=== PATIENT | male | born 1975 | race Caucasian/White ===

== ENCOUNTER 2021-03-14 16:51 | Emergency (ER) | payer OTHER, SELFPAY ==
[2021-03-14 16:58] VITALS: BP 139/75; PULSE 82; RESP 18; TEMP 36.8; O2SAT 99
--- NOTE | 2021-03-14 17:01 | ED.EYEPROB ---
HPI - Eye Problem General Chief complaint: Eye Problems Stated complaint: fb eye Time Seen by Provider: 03/14/21 17:05 Source: patient Mode of arrival: ambulatory Limitations: no limitations History of Present Illness HPI Narrative: 45 year old male presents to express care with complaints of foreign body to his left eye. 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 Patient states that he washed his left eye out using a water bottle but he continues to feel very irritated and photophobic with discomfort to his left eye. Patient denies any sharp pain, or any change in his vision, states some increase in watering from his left eye. Patient states that MD chief complaint: eye pain, eye redness, foreign body and other (photosensitivity) Onset (ago): hour(s) (at 1300 today) Onset description: sudden and gradual Duration: constant Location: left eye Eye Symptoms: redness, foreign body sensation and photophobia Mechanism: other (cutting wood) Related Data Home Medications Medication Instructions Recorded Confirmed fexofenadine [Marie] 180 mg PO DAILY 03/14/21 03/14/21 levothyroxine 03/14/21 03/14/21 Allergies Allergy/AdvReac Type Severity Reaction Status Date / Time No Known Allergies Allergy Unknown Verified 04/27/17 08:35 Review of Systems Review of Systems: Narrative: CONSTITUTIONAL: Denies fever, chills, or sweats. EYES: Denies visual changes,positive redness, some increased watering of left eye , photophobia and feeling of foreign body sensation. ENT: Denies rhinorrhea, congestion, sore throat, or otalgia. CARDIOVASCULAR: Denies chest pain, palpitations, or edema. RESPIRATORY: Denies cough or dyspnea. GASTROINTESTINAL: Denies abdominal pain, nausea, vomiting, or diarrhea. GENITOURINARY: Denies dysuria or hematuria. SKIN: Denies rash or itching. MUSCULOSKELETAL: Denies back pain, joint pain, or myalgia. NEUROLOGIC: Denies headache, numbness, or weakness. PSYCHIATRIC: Denies anxiety or depression. All systems reviewed & are unremarkable except as noted in HPI and below PMFSH Past Medical History Medical History (Updated 03/14/21 @ 17:53 by Caitlyn Shaw NP) Cancer of thyroid radioactive iodine Fracture of right forearm MRSA infection right leg Surgical History Surgical History (Updated 03/14/21 @ 17:54 by Caitlyn Shaw NP) No history of previous surgery Social History Social History (Updated 03/14/21 @ 17:54 by Caitlyn Shaw NP) Smoking status: Never smoker Alcohol intake: current Alcohol use details: rare Substance use: never Living arrangements: with family Gender identity (if verbalized by the patient): Male Comments At time of signature, agree with nursing past medical, surgical, social and family history. There is no relevant family history pertinent to the presenting complaint Exam Narrative: Exam Narrative: GENERAL: Well-appearing, well-nourished, and in no acute distress. HEAD: Normocephalic, atraumatic EYES: PERRLA and EOMI..increased watering and irritation to the left eye with foreign body sensation after cutting wood today. Patient states no changes in vision or any acute sharp pain. some scleral redness with photophobia ENT: Nares clear, no rhinorrhea or epistaxis. Mucous membranes moist. NECK: Supple.no lymphadenopathy CHEST: Clear to auscultation. No respiratory distress.[id number]% on room air HEART: Regular rate and rhythm. No murmur heard. Normal peripheral pulses. ABDOMEN: Soft, nontender, nondistended, normal active bowel sounds. EXTREMITIES: Normal range of motion. No edema. SKIN: Warm, dry, no rash. NEURO: No focal deficits. Alert and oriented x3. Course Vital Signs Vital signs: Vital Signs Temperature 36.8 C 03/14/21 16:58 Pulse Rate 82 03/14/21 16:58 Respiratory Rate 18 03/14/21 16:58 Blood Pressure 139/75 03/14/21 16:58 Pulse Oximetry 99 03/14/21 16:58
== END 2021-03-14 17:34 | disposition home or self-care (01) ==
PROVIDERS: Emergency Provider Registered Nurse; PCP Internal Medicine
DX: T15.12XA Foreign body in conjunctival sac, left eye, initial encounter (principal); X58.XXXA Exposure to other specified factors, initial encounter; Z85.850 Personal history of malignant neoplasm of thyroid; Z86.14 Personal history of Methicillin resistant Staphylococcus aureus infection
CPT/HCPCS: 65205; 99213; A9270; G0463

== ENCOUNTER 2021-05-07 15:03 | Emergency (ER) | payer OTHER, SELFPAY ==
[2021-05-07 15:08] VITALS: BP 139/84; PULSE 84; RESP 20; TEMP 36.8; O2SAT 98
--- NOTE | 2021-05-07 15:27 | ED.GENADULT ---
HPI - General Adult General Chief complaint: Upper Respiratory Infection Stated complaint: fever/cough/sob Source: patient Mode of arrival: ambulatory Limitations: no limitations History of Present Illness HPI narrative: 45 y/o male. PMHx Hypothyroid. Presents to [facility] today with acute complaints of nasal congestion, sore throat, cough, body aches, fever at home, as well as intermittent dyspnea for the past 1 week. He tells me that he had been exposed to his children whom were ill with similar symptoms earlier in the week when picking them up for skilled nursing arrangements. Denies chest pain, palpitations, edema. No GI upset, N/V/D. He reports subtherapeutic relief with OTC remedies. Non-smoker. Has not been Covid 19 vaccinated. Pt is w/o additional acute c/o illness upon PE. Related Data Home Medications Medication Instructions Recorded Confirmed levothyroxine 175 mcg PO DAILY 03/14/21 03/14/21 Allergies Allergy/AdvReac Type Severity Reaction Status Date / Time No Known Allergies Allergy Unknown Verified 05/07/21 15:17 Review of Systems Review of Systems: CONSTITUTIONAL: Positive fever, chills, sweats. EYES: Denies visual changes, redness, discharge. ENT: Positive rhinorrhea, congestion, sore throat. No otalgia. CARDIOVASCULAR: Denies chest pain, palpitations, edema. RESPIRATORY: Positive dyspnea, cough. No wheezing. GASTROINTESTINAL: Denies abdominal pain, nausea, vomiting, diarrhea. GENITOURINARY: Denies dysuria, hematuria, abnormal discharge SKIN: Denies rash or itching. MUSCULOSKELETAL: Denies acute back pain, joint pain, or myalgia. NEUROLOGIC: Denies numbness, or focal weakness. PSYCHIATRIC: Denies anxiety or depression. All systems reviewed & are unremarkable except as noted in HPI and below PMFSH Past Medical History Medical History Cancer of thyroid radioactive iodine Fracture of right forearm MRSA infection right leg Surgical History Surgical History No history of previous surgery Social History Social History Smoking status: Never smoker Alcohol intake: current Alcohol use details: rare Substance use: never Gender identity (if verbalized by the patient): Male Exam Narrative: GENERAL: This is a well-nourished, well-developed adult, in no apparent distress. HEAD: normocephalic, atraumatic. EYES: PERRL. Sclera clear/white. EARS: External ears normal, auditory canals clear and without drainage, TMs normal. NOSE: External nose normal. Positive Rhinorrhea, bilateral nare congestion. No obstruction, nares patent. THROAT: Mucous membranes moist, posterior pharynx erythematous. No exudates. NECK: Neck supple, non-tender without lymphadenopathy, masses or thyromegaly. CARDIOVASCULAR: Regular rate and rhythm without murmurs, gallops, or rubs. RESPIRATORY: Clear to auscultation. Breath sounds equal bilaterally. No wheezes, rales, or rhonchi. GASTROINTESTINAL: Abdomen soft, non-tender, nondistended. Bowel sounds are active. No guarding. SKIN: warm, intact with no suspicious lesions or rash, good texture and turgor. NEURO: Alert, active, and age appropriate. No focal neurologic deficits. EXTREMITIES: Negative. Course Vital Signs Vital signs: Vital Signs Temperature 36.8 C 05/07/21 15:08 Pulse Rate 84 05/07/21 15:08 Respiratory Rate 20 05/07/21 15:08 Blood Pressure 139/84 05/07/21 15:08 Pulse Oximetry 98 05/07/21 15:08 Temperature 36.8 C 05/07/21 15:08 Pulse Rate 84 05/07/21 15:08 Respiratory Rate 20 05/07/21 15:08 Blood Pressure 139/84 05/07/21 15:08 Pulse Oximetry 98 05/07/21 15:08 Medical Decision Making [facility] Narrative Medical decision making narrative: -SARS rapid Covid 19 POSITIVE. -Afebrile, no respiratory distress, normotensive, and
== END 2021-05-07 15:39 | disposition home or self-care (01) ==
PROVIDERS: Emergency Provider Nurse Practitioner Adult Health; PCP Internal Medicine
DX: U07.1 COVID-19 (principal); Z86.14 Personal history of Methicillin resistant Staphylococcus aureus infection; Z85.850 Personal history of malignant neoplasm of thyroid; Z77.123 Contact with and (suspected) exposure to radon and other naturally occurring radiation
CPT/HCPCS: 87426; 99213; C9803; G0463

== ENCOUNTER 2023-09-05 02:59 | Day surgery (SDC) | payer BC, SELFPAY ==
[2023-08-25 12:25] VITALS: BMI 33.9
--- NOTE | 2023-09-03 10:35 | SUR.PREOP ---
Patient called regarding upcoming procedure. Reviewed preop instructions, appointment times, and procedure prep.
[2023-09-05 13:45] VITALS: BP 114/65; PULSE 82; RESP 20; TEMP 36.2; O2SAT 98
--- NOTE | 2023-09-05 13:53 | P.PNAN_ITS ---
Anes - Initial Pre Proc Eval Procedure: Operation Date: 09/05/23 14:30 Proposed Procedures p Screening Colonoscopy - North Tomas MD Date/Time: 09/05/23 13:53 Surgeon: North Tomas MD Pre Op Diagnosis: neoplasm screening Patient Data Age: 48 Gender: M Height: 1.83 m Weight: 109.2 kg Last Vital Signs Temp 97.1 F L 09/05/23 13:45 Pulse 82 09/05/23 13:45 Resp 20 09/05/23 13:45 BP 114/65 09/05/23 13:45 Pulse Ox 98 09/05/23 13:45 O2 Del Method Room Air 09/05/23 13:45 Allergies Allergy/AdvReac Type Severity Reaction Status Date / Time No Known Allergies Allergy Unknown Verified 09/05/23 13:43 Home Medications Medication Instructions Recorded Confirmed Type levothyroxine 150 mcg tablet 150 mcg PO DAILY #90 tabs 05/01/23 08/25/23 Rx loratadine 10 mg tablet 10 mg PO DAILY 05/01/23 09/05/23 History tamsulosin 0.4 mg capsule 0.4 mg PO DAILY #90 caps 08/13/23 09/05/23 Rx Patient hx anesthesia problems: none Family hx anesthesia problems: none Results Review: All pre-operative results and documents have been reviewed as part of the pre- operative evaluation. [facility]LY [facility] Past Medical History Medical History (Updated 05/01/23 @ 15:50 by Kaveh Curtis MD) Attention deficit History of thyroid cancer Hypothyroidism associated with surgical procedure Surgical History Surgical History (Updated 05/01/23 @ 15:50 by Kaveh Curtis MD) History of thyroidectomy 2011 Family History Family History (Updated 05/01/23 @ 15:07 by Kaveh Curtis MD) Father Diabetes mellitus Heart disease Grandparent Heart disease Mother Depression Social History Social History (Updated 05/01/23 @ 15:08 by Kaveh Curtis MD) Smoking status: Never smoker Alcohol intake: former Alcohol use details: 1 beer this year Substance use: never Substance use type: does not use Living arrangements: other Additional living arrangements comments: with sp Gender identity (if verbalized by the patient): Male Anes - Eval Final PreProcedure Day of Procedure 09/05/23 13:53 Patient weight: obese Heart: regular rate and rhythm Lungs: clear to auscultation Airway: Mallampati scale class II Neurological: alert and oriented Last oral intake: >/= 8 hours ASA classification: III Emergent: no Anesthetic plan: proceed Anesthesia type and monitoring: general GIVS and standard monitoring Results Review: All pre-operative results and documents have been reviewed as part of the pre- operative evaluation. Informed Consent: The patient's anesthetic plan and its attendant risks and benefits were discussed with the patient/family/POA. Questions were solicited and answers provided to the satisfaction of the patient/family/POA.
[2023-09-05] MEDS: LACTATED RINGERS 1,000 ML 150 ML IV CONT (14:01)
--- NOTE | 2023-09-05 14:58 | PM.HPGS ---
History of Present Illness History of Present Illness Consent: Risks, benefits, and alternatives have been discussed and questions answered. Patient agrees to proceed with procedure. Chief complaint: neoplasm screening Narrative: Gregorio Monzon is a 48 year old male here for first screening colonoscopy Review of Systems Constitutional: Constitutional: Denies headache(s) and Denies weakness Eyes: Eyes: Denies blurry vision ENT: Reports Normal hearing present, Denies headache(s) and Denies neck pain Cardiovascular: Cardiovascular: Denies chest pain and Denies dyspnea Respiratory: Respiratory: Denies dyspnea Gastrointestinal: Gastrointestinal: Reports no additional gastrointestinal complaints Genitourinary: Genitourinary: Denies dysuria Musculoskeletal: Musculoskeletal: Denies neck pain Integumentary/Breasts: Skin/Breast: Denies dry skin Neurologic: Reports Normal hearing present, Denies headache(s) and Denies weakness Psychiatric: Psychiatric: Denies anxiety Endocrine: Endocrine: Denies change in body appearance Hematologic/Lymphatic: Hematologic/Lymphatic: Denies easy bleeding Allergic/Immunologic: Allergic/Immunologic: Denies urticaria PMF Past Medical History Medical History (Updated 09/05/23 @ 14:58 by North Tomas MD) Attention deficit Colon cancer screening History of thyroid cancer Hypothyroidism associated with surgical procedure Surgical History Surgical History (Updated 05/01/23 @ 15:50 by Kaveh Curtis MD) History of thyroidectomy 2011 Family History Family History (Updated 05/01/23 @ 15:07 by Kaveh Curtis MD) Father Diabetes mellitus Heart disease Grandparent Heart disease Mother Depression Social History Social History (Updated 05/01/23 @ 15:08 by Kaveh Curtis MD) Smoking status: Never smoker Alcohol intake: former Alcohol use details: 1 beer this year Substance use: never Substance use type: does not use Living arrangements: other Additional living arrangements comments: with sp Gender identity (if verbalized by the patient): Male Meds Home Medications and Allergies Home Medications Medication Instructions Recorded Confirmed Type levothyroxine 150 mcg tablet 150 mcg PO DAILY #90 tabs 05/01/23 08/25/23 Rx loratadine 10 mg tablet 10 mg PO DAILY 05/01/23 09/05/23 History tamsulosin 0.4 mg capsule 0.4 mg PO DAILY #90 caps 08/13/23 09/05/23 Rx naproxen 220 mg PO DAILY PRN Pain 09/05/23 09/05/23 History Allergies Allergy/AdvReac Type Severity Reaction Status Date / Time No Known Allergies Allergy Unknown Verified 09/05/23 13:43 Vital Signs Vital Signs - 24 hr 09/05/23 13:45 Temperature 97.1 F L Pulse Rate 82 Respiratory Rate 20 Blood Pressure 114/65 Pulse Oximetry 98 Oxygen Delivery Room Air Exam Const: General: comfortable and no acute distress HENMT: Face/Nose/Sinus: Normal nares present Eyes: General: appearance normal, both eyes and all related structures Neck: Neck: no JVD Resp: Auscultation: clear to auscultation bilaterally Cardio: Rate: regular rate Rhythm: regular rhythm GI: Inspection: non-distended GI Palp: Yes Soft to palpation Skin: General skin exam: normal color Neuro: General: gait normal Speech: normal speech Extrem: General: normal to inspection Psych: Mental Status: mental status grossly normal Assessment and Plan Assessment and plan (1) Colon cancer screening: Code(s): Z12.11 - Encounter for screening for malignant neoplasm of colon Status: Acute Assessment and Plan: colonoscopy
[2023-09-05 15:18] VITALS: BP 113/74; PULSE 75; RESP 19; O2SAT 97
[2023-09-05 15:28] VITALS: BP 120/75; PULSE 69; RESP 15; O2SAT 99
[2023-09-05 15:35] VITALS: BP 132/82; PULSE 77; RESP 17; O2SAT 99
== END 2023-09-05 15:50 | disposition home or self-care (01) ==
PROVIDERS: PCP Family Medicine; Visit Provider Internal Medicine Gastroenterology
PROC: 0DJD8ZZ Inspection of Lower Intestinal Tract, Via Natural or Artificial Opening Endoscopic (ICD-10-PCS; CPT 45378; principal; 2023-09-05 14:30)
DX: Z12.11 Encounter for screening for malignant neoplasm of colon (principal); K63.5 Polyp of colon; D12.8 Benign neoplasm of rectum; K64.8 Other hemorrhoids; E89.0 Postprocedural hypothyroidism; Z85.850 Personal history of malignant neoplasm of thyroid; E66.9 Obesity, unspecified; Z68.32 Body mass index [BMI] 32.0-32.9, adult
CPT/HCPCS: 45385; 88305; J2704; J7120